=== PATIENT | male | born 1995 | race Caucasian/White ===

== ENCOUNTER 2017-07-22 00:50 | Emergency (ER) | payer OTHER ==
[~2017-07-22] VITALS: Ht 175.3 cm; Wt 76.7 kg
[2017-07-22 00:56] VITALS: Ht 175.3 cm; Wt 76.7 kg
[2017-07-22 01:45] VITALS: BP 131/76
== END 2017-07-22 01:45 | disposition home or self-care (01) ==
LOC: ED 00:50
DX: K64.4 Residual hemorrhoidal skin tags (principal)